=== PATIENT | female | born 1990 | race Caucasian/White ===

== ENCOUNTER 2018-08-06 15:00 | Inpatient (IN) | payer OTHER ==
[~2018-08-06] VITALS: Ht 175.3 cm; Wt 86.3 kg
[~2018-08-06 15:00] MED LIST: ACEDIPPM PO; APRI1 EACH PO; Bupropion Xl150 MG PO; CEFD300 PO; CIPR500 PO; DIPATR PO; FAMO20 PO; GYNE-LOTRIMIN-745 GM VAG; HYDACE5 PO; IBUP800 PO; LAMO100 PO; MEDR10 PO; MULVITMINE PO; Monodox100 MG PO; NAPR500EC PO; NYQUIL; Naprosyn500 MG PO; Norco 5-325 Ta1 EACH PO; ONDA4ODT MM; OXYACE5T PO; PENVK500 PO; POLY17UD PO; PROC10 PO; PROCODE120 PO; PROM25 PO; Percocet 5-3251 EACH PO; QUET100 PO; RXOXYACE PO; SIMPLY SLEEP PO; TAMS.4ER PO; UNISOM25 MG PO; Ventolin/Prove6.7 GM INH; Verotin-Gr Cap1 EACH PO; WELLBUTRIN; Zofran Odt4 MG PO; Zofran Odt4 MG SL
[2018-08-06 15:43] LABS: BASOPHILS ABSOLUTE AUTO 0.07 K/mm3 (0.00-0.23); BASOPHILS PERCENT AUTO 0 % (0-2); EOSINOPHILS PERCENT AUTO 0 % (0-6); Hematocrit 28.8 % (33.0-51.0); Hemoglobin 9.3 g/dL (11.5-16.0); IMMATURE GRAN ABSOLUTE AUTO 0.49 K/mm3 (0.00-0.10); IMMATURE GRAN PERCENT AUTO 1 % (0-1); LYMPHOCYTES ABSOLUTE AUTO 1.01 K/mm3 (0.84-5.20); LYMPHOCYTES PERCENT AUTO 3 % (21-46); MONOCYTES ABSOLUTE AUTO 2.19 K/mm3 (0.16-1.47); MONOCYTES PERCENT AUTO 6 % (4-13); Mean Corpuscular HGB Conc 32.3 g/dL (31.5-36.5); Mean Corpuscular Volume 90 fL (80-100); Mean Platelet Volume 10.5 fL (9.1-12.4); NEUTROPHILS ABSOLUTE AUTO 33.24 K/mm3 (1.96-9.15); NEUTROPHILS PERCENT AUTO 90 % (41-73); Platelet Count 312 K/mm3 (150-400); RDW Coefficient Variation 12.5 % (11.7-14.2); RDW Standard Deviation 41.5 fL (35.1-46.3); Red Blood Cell Count 3.21 M/mm3 (3.80-5.20)
--- NOTE | 2018-08-06 16:40 | NUR ---
JULIA Smalls RN IN OR NOTIFIED OF LABORING VTOL PT 8CM KIMBERLY BEYER
[2018-08-06 21:58] LABS: Alanine Aminotransfer (ALT/SGP 19 U/L (12-78); Albumin, Blood 2.3 g/dL (3.4-5.0); Albumin/Globulin Ratio 0.5 (0.8-1.8); Alk Phos 168 U/L (50-136); Anion Gap 13 mmol/L (6-16); Aspartate Aminotrans (AST/SGOT 14 U/L (12-37); Bilirubin, Total 0.7 mg/dL (0.1-1.0); Blood Urea Nitrogen 3 mg/dL (8-24); Bun/Creatinine Ratio 6.4 (12.0-20.0); CO2, Blood 20 mmol/L (21-32); Calcium, Blood 8.8 mg/dL (8.5-10.1); Chloride, Blood 103 mmol/L (98-108); Creatinine, Blood 0.47 mg/dL (0.40-1.00); Globulin, Blood 4.2 g/dL (2.2-4.0); Glomerular Filtration Rate >60 (60-); Glucose, Blood 104 mg/dL (70-99); Sodium, Blood 136 mmol/L (136-145); Total Protein, Blood 6.5 g/dL (6.4-8.2)
--- NOTE | 2018-08-07 00:40 | NUR ---
DUAL LUMEN CATH PLACED BY ULTRASOUND.
[2018-08-07 05:03] LABS: BASOPHILS ABSOLUTE AUTO 0.07 K/mm3 (0.00-0.23); BASOPHILS PERCENT AUTO 0 % (0-2); EOSINOPHILS ABSOLUTE AUTO 0.01 K/mm3 (0.00-0.68); EOSINOPHILS PERCENT AUTO 0 % (0-6); Hematocrit 25.2 % (33.0-51.0); Hemoglobin 7.8 g/dL (11.5-16.0); IMMATURE GRAN ABSOLUTE AUTO 0.45 K/mm3 (0.00-0.10); IMMATURE GRAN PERCENT AUTO 2 % (0-1); LYMPHOCYTES ABSOLUTE AUTO 2.16 K/mm3 (0.84-5.20); LYMPHOCYTES PERCENT AUTO 7 % (21-46); MONOCYTES PERCENT AUTO 6 % (4-13); Mean Corpuscular HGB 28.8 pg (26.0-34.0); Mean Platelet Volume 10.5 fL (9.1-12.4); NEUTROPHILS ABSOLUTE AUTO 25.19 K/mm3 (1.96-9.15); NEUTROPHILS PERCENT AUTO 85 % (41-73); Platelet Count 269 K/mm3 (150-400); RDW Coefficient Variation 12.9 % (11.7-14.2); RDW Standard Deviation 43.9 fL (35.1-46.3); Red Blood Cell Count 2.71 M/mm3 (3.80-5.20); White Blood Cell Count 29.78 K/mm3 (4.00-11.30)
[2018-08-07 05:15] LABS: Mean Corpuscular Volume 93 fL (80-100)
--- NOTE | 2018-08-07 11:22 | NUR ---
LOW B/P, PATIENT STATES SHE FEELS FINE STATES NO DIZZINESS, BLEEDING WNL, STATES SHE HAS HAD LOW B/P IN THE PAST
[2018-08-08 06:11] LABS: BASOPHILS PERCENT AUTO 1 % (0-2); EOSINOPHILS ABSOLUTE AUTO 0.24 K/mm3 (0.00-0.68); EOSINOPHILS PERCENT AUTO 1 % (0-6); Hematocrit 25.3 % (33.0-51.0); Hemoglobin 7.9 g/dL (11.5-16.0); IMMATURE GRAN ABSOLUTE AUTO 0.51 K/mm3 (0.00-0.10); IMMATURE GRAN PERCENT AUTO 3 % (0-1); LYMPHOCYTES ABSOLUTE AUTO 3.12 K/mm3 (0.84-5.20); LYMPHOCYTES PERCENT AUTO 17 % (21-46); MONOCYTES ABSOLUTE AUTO 1.14 K/mm3 (0.16-1.47); MONOCYTES PERCENT AUTO 6 % (4-13); Mean Corpuscular HGB 29.3 pg (26.0-34.0); Mean Corpuscular HGB Conc 31.2 g/dL (31.5-36.5); Mean Corpuscular Volume 94 fL (80-100); Mean Platelet Volume 10.3 fL (9.1-12.4); NEUTROPHILS ABSOLUTE AUTO 13.81 K/mm3 (1.96-9.15); NEUTROPHILS PERCENT AUTO 73 % (41-73); Platelet Count 271 K/mm3 (150-400); RDW Standard Deviation 44.5 fL (35.1-46.3); White Blood Cell Count 18.92 K/mm3 (4.00-11.30)
--- NOTE | 2018-08-08 09:47 | NUR ---
PT REFUSES HIV LAB DRAW. STATE SHE IS SURE THAT SHE DOES NOT HAVE HIV. JUAN FRANCISCO CORONADO AT BEDSIDE WHEN PT STATES THIS AND REFUSES FURTHER TESTING. AKILA IN LAB NOTIFIED, AKILA STATES HE WILL TRY TO RUN AND HIV TEST OFF OF THE BLOOD TUBES HE HAS IN THE LAB.
== END 2018-08-08 20:17 | disposition home or self-care (01) | DRG 807 ==
LOC: OBS 15:00 → BC 15:01 → OBS 15:09 → BC 15:10
PROVIDERS: Nurse Practitioner Obstetrics & Gynecology; Obstetrics & Gynecology; ADMIT Advanced Practice Midwife
PROC: 10E0XZZ Delivery of Products of Conception, External Approach (ICD-10-PCS; principal; 2018-08-06)
DX: O42.12 Full-term premature rupture of membranes, onset of labor more than 24 hours following rupture (principal); Z37.0 Single live birth; Z3A.35 35 weeks gestation of pregnancy; O34.211 Maternal care for low transverse scar from previous cesarean delivery; O90.81 Anemia of the puerperium
CPT/HCPCS: 36415; 36430; 51702; 80053; 83605; 85025; 86703; 86850; 86900; 86901; 86923; 90471; 90707; J0290; J1885; J2543; J2590; J3010; J7030; J7050; J7120; P9016; Q0177

== ENCOUNTER → 2019-02-06 | Outpatient (CLI) | payer OTHER ==
[~2019-02-06] MED LIST changes: +BUSP5 PO; +Lactated Ringe500 M1 IV; +ONDA4 PO; +Ondansetron4 MG/2 M2 IV; +SERT25 PO
[2019-02-06 12:28] LABS: Source, Urine Clean Catch
[2019-02-06 14:54] LABS: Bilirubin, Urine Neg (Neg); Blood, Urine Neg (Neg); Glucose Qualitative, Urine Neg (Neg); Ketones, Urine Neg (Neg); Leukocyte Esterase, Urine Neg (Neg); Nitrite, Urine Neg (Neg); Protein, Urine Neg (Neg); Specific Gravity, Urine 1.005 (1.003-1.022); Urobilinogen, Urine NORM (Normal)
[2019-02-06 15:07] LABS: Appearance, Urine Clear (Clear); Color, Urine Yellow (P-Yellow)
== END ==
LOC: LAB SHORT 12:26 → LAB UCHC 12:26
PROVIDERS: Registered Nurse Community Health
DX: Z33.1 Pregnant state, incidental (principal)
CPT/HCPCS: 36415; 81003; 87086

== ENCOUNTER 2019-02-13 11:57 | Emergency (ER) | payer OTHER ==
[~2019-02-13] VITALS: Ht 175.3 cm; Wt 72.6 kg
[~2019-02-13 11:57] MED LIST changes: -BUSP5 PO; -Lactated Ringe500 M1 IV; -ONDA4 PO; -Ondansetron4 MG/2 M2 IV; -SERT25 PO
[2019-02-13] MEDS ORDERED: ONDA4 PO (12:10)
[2019-02-13 13:04] LABS: BASOPHILS ABSOLUTE AUTO 0.02 K/mm3 (0.00-0.23); BASOPHILS PERCENT AUTO 0 % (0-2); EOSINOPHILS ABSOLUTE AUTO 0.08 K/mm3 (0.00-0.68); EOSINOPHILS PERCENT AUTO 1 % (0-6); Hematocrit 38.8 % (33.0-51.0); Hemoglobin 12.3 g/dL (11.5-16.0); IMMATURE GRAN ABSOLUTE AUTO 0.03 K/mm3 (0.00-0.10); IMMATURE GRAN PERCENT AUTO 0 % (0-1); LYMPHOCYTES PERCENT AUTO 24 % (21-46); MONOCYTES ABSOLUTE AUTO 0.58 K/mm3 (0.16-1.47); MONOCYTES PERCENT AUTO 8 % (4-13); Mean Corpuscular HGB 28.6 pg (26.0-34.0); Mean Corpuscular HGB Conc 31.7 g/dL (31.5-36.5); Mean Corpuscular Volume 90 fL (80-100); Mean Platelet Volume 10.3 fL (9.1-12.4); NEUTROPHILS ABSOLUTE AUTO 5.11 K/mm3 (1.96-9.15); NEUTROPHILS PERCENT AUTO 67 % (41-73); Platelet Count 248 K/mm3 (150-400); RDW Standard Deviation 39.4 fL (35.1-46.3); White Blood Cell Count 7.62 K/mm3 (4.00-11.30)
[2019-02-13 13:22] LABS: Alanine Aminotransfer (ALT/SGP 53 U/L (12-78); Albumin, Blood 3.8 g/dL (3.4-5.0); Albumin/Globulin Ratio 1.1 (0.8-1.8); Alk Phos 96 U/L (50-136); Anion Gap 5 mmol/L (6-16); Aspartate Aminotrans (AST/SGOT 16 U/L (12-37); Bilirubin, Total 0.4 mg/dL (0.1-1.0); Blood Urea Nitrogen 7 mg/dL (8-24); Bun/Creatinine Ratio 15.4 (12.0-20.0); CO2, Blood 26 mmol/L (21-32); Calcium, Blood 8.9 mg/dL (8.5-10.1); Chloride, Blood 106 mmol/L (98-108); Creatinine, Blood 0.46 mg/dL (0.40-1.00); Globulin, Blood 3.6 g/dL (2.2-4.0); Glomerular Filtration Rate >60 (60-); Glucose, Blood 75 mg/dL (70-99); Potassium, Blood 3.6 mmol/L (3.5-5.5); Sodium, Blood 137 mmol/L (136-145); Total Protein, Blood 7.4 g/dL (6.4-8.2)
[2019-02-13 13:23] LABS: Source, Urine Clean Catch
[2019-02-13 13:33] LABS: Bilirubin, Urine Neg (Neg); Blood, Urine Neg (Neg); Glucose Qualitative, Urine Neg (Neg); Ketones, Urine Neg (Neg); Leukocyte Esterase, Urine 1+ (Neg); Nitrite, Urine Neg (Neg); Protein, Urine Neg (Neg); Urobilinogen, Urine NORM (Normal)
[2019-02-13 13:47] LABS: Appearance, Urine Clear (Clear); Color, Urine Yellow (P-Yellow)
[2019-02-13 13:48] LABS: Red Blood Cells, Urine 0-2 /hpf (0-2); Squamous Epithelial Cells Mod /hpf (Few); White Blood Cells, Urine 0-2 /hpf (0-5)
[2019-02-13 13:49] LABS: Bacteria Few /hpf
== END 2019-02-13 14:17 | disposition home or self-care (01) ==
LOC: ER 11:57
PROVIDERS: Emergency Medicine
DX: O20.0 Threatened abortion (principal); Z3A.08 8 weeks gestation of pregnancy
CPT/HCPCS: 36415; 76801; 76817; 80053; 81001; 84702; 85025; 87086; 87147; 99284-25

== ENCOUNTER 2019-02-21 09:51 | Day surgery (SDC) | payer OTHER ==
[~2019-02-21 09:51] MED LIST changes: +ONDA4 PO
== END 2019-02-21 12:29 | disposition home or self-care (01) ==
LOC: ATC 09:51
DX: O21.0 Mild hyperemesis gravidarum (principal); O20.0 Threatened abortion; O34.219 Maternal care for unspecified type scar from previous cesarean delivery; Z3A.00 Weeks of gestation of pregnancy not specified; Z79.899 Other long term (current) drug therapy
CPT/HCPCS: 96361; 96365; 96375; J2405; J3411; J3475; J7042; J7120

== ENCOUNTER 2019-02-24 00:08 | Day surgery (SDC) | payer OTHER ==
[~2019-02-24 00:08] MED LIST changes: -BUSP5 PO; -Lactated Ringe500 M1 IV; -Ondansetron4 MG/2 M2 IV; -SERT25 PO
== END 2019-02-24 18:53 | disposition home or self-care (01) ==
LOC: ATC 00:08
DX: O20.0 Threatened abortion (principal); O34.219 Maternal care for unspecified type scar from previous cesarean delivery; Z3A.00 Weeks of gestation of pregnancy not specified; Z79.899 Other long term (current) drug therapy
CPT/HCPCS: 96361; 96365; 96375; J2405; J3411; J3475; J7042; J7120

== ENCOUNTER → 2019-02-24 | Outpatient (CLI) | payer OTHER ==
[~2019-02-24] MED LIST changes: +BUSP5 PO; +Lactated Ringe500 M1 IV; +Ondansetron4 MG/2 M2 IV; +SERT25 PO
[2019-02-27 00:06] LABS: CHLAMYDIA TRACHOMATIS, NAA Negative (Negative); NEISSERIA GONORRHOEAE, NAA Negative (Negative)
== END ==
LOC: LAB SHORT 17:52 → LAB 17:52
PROVIDERS: Registered Nurse Community Health
DX: Z34.92 Encounter for supervision of normal pregnancy, unspecified, second trimester (principal)
CPT/HCPCS: 87491; 87591

== ENCOUNTER 2019-02-27 02:24 | Day surgery (SDC) | payer OTHER ==
[2019-02-27] MEDS ORDERED: BUSP5 PO (16:45)
[2019-02-27] MEDS ORDERED: SERT25 PO (16:45)
== END 2019-02-27 18:53 | disposition home or self-care (01) ==
LOC: ATC 02:24
DX: O21.0 Mild hyperemesis gravidarum (principal); O99.511 Diseases of the respiratory system complicating pregnancy, first trimester; O99.281 Endocrine, nutritional and metabolic diseases complicating pregnancy, first trimester; O99.341 Other mental disorders complicating pregnancy, first trimester; E05.90 Thyrotoxicosis, unspecified without thyrotoxic crisis or storm; J45.909 Unspecified asthma, uncomplicated; F41.8 Other specified anxiety disorders; Z3A.11 11 weeks gestation of pregnancy; Z91.018 Allergy to other foods; Z79.899 Other long term (current) drug therapy; Z87.891 Personal history of nicotine dependence
CPT/HCPCS: 96361; 96365; 96375; J2405; J3411; J3475; J7042; J7120

== ENCOUNTER 2019-03-02 00:15 | Day surgery (SDC) | payer OTHER ==
[~2019-03-02 00:15] MED LIST changes: +BUSP5 PO; +SERT25 PO
--- NOTE | 2019-03-02 18:54 | NUR ---
PT GOT A LATE START TO HER INFUSION DUE TO IV ACCESS ISSUES. PT REQUESTED BANANA BAG BUT DECLINED MELISSA RICKS
--- NOTE | 2019-03-02 18:55 | NUR ---
PT STATED IV STUNG AND WOULD LIKE TO ATTEMPT POWER GLIDE ACCESS TONIGHT
--- NOTE | 2019-03-02 18:57 | NUR ---
EXTENDED DWELL ATTEMPT X2, UNABLE TO CANULATE VEIN.
== END 2019-03-02 18:53 | disposition home or self-care (01) ==
LOC: ATC 00:15
DX: O21.0 Mild hyperemesis gravidarum (principal); O99.281 Endocrine, nutritional and metabolic diseases complicating pregnancy, first trimester; O99.341 Other mental disorders complicating pregnancy, first trimester; O34.219 Maternal care for unspecified type scar from previous cesarean delivery; E05.90 Thyrotoxicosis, unspecified without thyrotoxic crisis or storm; F41.9 Anxiety disorder, unspecified; F32.9 Major depressive disorder, single episode, unspecified; Z3A.12 12 weeks gestation of pregnancy; Z87.51 Personal history of pre-term labor; Z91.018 Allergy to other foods; Z79.899 Other long term (current) drug therapy
CPT/HCPCS: 96365; 96375; J2405; J3411; J3475; J7042; J7120

== ENCOUNTER 2019-03-03 10:22 | Day surgery (SDC) | payer OTHER ==
--- NOTE | 2019-03-03 18:55 | NUR ---
ATTEMPTED POWER GLIDE 3 TIMES ON BOTH ARMS. PT VERY ANXIOUS. UNABLE TO CANNULATE VEIN.
== END 2019-03-03 18:52 | disposition home or self-care (01) ==
LOC: ATC 10:22
DX: O21.0 Mild hyperemesis gravidarum (principal); O99.281 Endocrine, nutritional and metabolic diseases complicating pregnancy, first trimester; O99.341 Other mental disorders complicating pregnancy, first trimester; O34.219 Maternal care for unspecified type scar from previous cesarean delivery; E05.90 Thyrotoxicosis, unspecified without thyrotoxic crisis or storm; F41.9 Anxiety disorder, unspecified; F32.9 Major depressive disorder, single episode, unspecified; Z3A.12 12 weeks gestation of pregnancy; Z87.51 Personal history of pre-term labor; Z91.018 Allergy to other foods; Z79.899 Other long term (current) drug therapy; Z87.891 Personal history of nicotine dependence
CPT/HCPCS: 96361; 96374; J2405; J7120

== ENCOUNTER 2019-03-05 00:10 | Day surgery (SDC) | payer OTHER ==
[2019-03-05] MEDS ORDERED: Lactated Ringe500 M1 IV (17:42)
[2019-03-05] MEDS ORDERED: Ondansetron4 MG/2 M2 IV (17:43)
== END 2019-03-05 23:04 | disposition home or self-care (01) ==
LOC: ATC 00:10
DX: O21.0 Mild hyperemesis gravidarum (principal); O99.281 Endocrine, nutritional and metabolic diseases complicating pregnancy, first trimester; O99.341 Other mental disorders complicating pregnancy, first trimester; O99.611 Diseases of the digestive system complicating pregnancy, first trimester; O99.511 Diseases of the respiratory system complicating pregnancy, first trimester; O34.219 Maternal care for unspecified type scar from previous cesarean delivery; E05.90 Thyrotoxicosis, unspecified without thyrotoxic crisis or storm; K21.9 Gastro-esophageal reflux disease without esophagitis; F41.9 Anxiety disorder, unspecified; F32.9 Major depressive disorder, single episode, unspecified; J45.909 Unspecified asthma, uncomplicated; Z3A.12 12 weeks gestation of pregnancy; Z87.51 Personal history of pre-term labor; Z79.899 Other long term (current) drug therapy; Z87.891 Personal history of nicotine dependence; Z91.018 Allergy to other foods
CPT/HCPCS: 96361; 96374; J2405; J3411; J3475; J7042; J7120

== ENCOUNTER 2019-03-13 00:53 | Day surgery (SDC) | payer OTHER ==
[~2019-03-13 00:53] MED LIST changes: +Lactated Ringe500 M1 IV; +Ondansetron4 MG/2 M2 IV
== END 2019-03-13 23:22 | disposition home or self-care (01) ==
LOC: ATC 00:53
DX: O21.0 Mild hyperemesis gravidarum (principal); O99.519 Diseases of the respiratory system complicating pregnancy, unspecified trimester; J45.909 Unspecified asthma, uncomplicated; Z3A.00 Weeks of gestation of pregnancy not specified; Z87.891 Personal history of nicotine dependence
CPT/HCPCS: J3411; J3475; J7042

== ENCOUNTER 2019-03-14 08:56 | Day surgery (SDC) | payer OTHER | END 2019-03-14 11:41 | disposition home or self-care (01) | LOC: ATC 08:56 | DX: O21.0 Mild hyperemesis gravidarum (principal); O99.519 Diseases of the respiratory system complicating pregnancy, unspecified trimester; I10 Essential (primary) hypertension; J45.909 Unspecified asthma, uncomplicated; Z87.891 Personal history of nicotine dependence; Z3A.00 Weeks of gestation of pregnancy not specified | CPT/HCPCS: 96361; 96365; 96375; J2405; J3411; J3475; J7042; J7120 ==

== ENCOUNTER 2019-03-21 01:39 | Day surgery (SDC) | payer OTHER ==
--- NOTE | 2019-03-21 10:53 | NUR ---
THIS RN ATTEMPTED 3X FOR IV INSERTION, ALL 3 WERE UNSUCCESSFUL. CALLED [facility] FOR IV.
--- NOTE | 2019-03-21 11:16 | NUR ---
PT REFUSED BANANA BAG TODAY.
== END 2019-03-21 22:38 | disposition home or self-care (01) ==
LOC: ATC 01:39
DX: O21.0 Mild hyperemesis gravidarum (principal); O99.519 Diseases of the respiratory system complicating pregnancy, unspecified trimester; J45.909 Unspecified asthma, uncomplicated; Z79.899 Other long term (current) drug therapy; Z3A.00 Weeks of gestation of pregnancy not specified; Z87.891 Personal history of nicotine dependence
CPT/HCPCS: 96361; 96374; J2405; J3411; J3475; J7042; J7120

== ENCOUNTER 2019-03-26 00:20 | Day surgery (SDC) | payer OTHER | END 2019-03-26 19:01 | disposition home or self-care (01) | LOC: ATC 00:20 | DX: O21.0 Mild hyperemesis gravidarum (principal); O99.519 Diseases of the respiratory system complicating pregnancy, unspecified trimester; J45.909 Unspecified asthma, uncomplicated; Z87.891 Personal history of nicotine dependence | CPT/HCPCS: 96361; 96365; 96367; J2405; J3411; J3475; J7042; J7120 ==

== ENCOUNTER 2019-03-29 00:37 | Day surgery (SDC) | payer OTHER ==
--- NOTE | 2019-03-29 09:06 | NUR ---
PT ACTIVELY PUKING UPON ARRIVAL TO THE ROOM THIS AM. ZOFRAN GIVEN PER MD ORDER.
== END 2019-03-29 11:00 | disposition home or self-care (01) ==
LOC: ATC 00:37
DX: O21.0 Mild hyperemesis gravidarum (principal); O99.519 Diseases of the respiratory system complicating pregnancy, unspecified trimester; J45.909 Unspecified asthma, uncomplicated; Z3A.00 Weeks of gestation of pregnancy not specified
CPT/HCPCS: 96360; 96361; 96375; J2405; J3411; J3475; J7042; J7120

== ENCOUNTER 2019-04-02 00:05 | Day surgery (SDC) | payer OTHER | END 2019-04-02 17:48 | disposition home or self-care (01) | LOC: ATC 00:05 | DX: O21.0 Mild hyperemesis gravidarum (principal); O99.519 Diseases of the respiratory system complicating pregnancy, unspecified trimester; J45.909 Unspecified asthma, uncomplicated; Z3A.00 Weeks of gestation of pregnancy not specified; Z87.891 Personal history of nicotine dependence | CPT/HCPCS: 96361; 96365; 96375; J2405; J3411; J3475; J7042; J7120 ==

== ENCOUNTER 2019-04-08 00:13 | Day surgery (SDC) | payer OTHER ==
[2019-04-08] MEDS ORDERED: DULO60 PO (16:50)
[2019-04-08] MEDS ORDERED: Amoxicillin500 MG PO (16:51)
== END 2019-04-08 22:54 | disposition home or self-care (01) ==
LOC: ATC 00:13
DX: O21.0 Mild hyperemesis gravidarum (principal); O99.519 Diseases of the respiratory system complicating pregnancy, unspecified trimester; J45.909 Unspecified asthma, uncomplicated; Z3A.00 Weeks of gestation of pregnancy not specified; Z87.891 Personal history of nicotine dependence
CPT/HCPCS: 96361; 96374; J2405; J3411; J3475; J7042; J7120

== ENCOUNTER 2019-04-11 02:15 | Day surgery (SDC) | payer OTHER ==
[~2019-04-11 02:15] MED LIST changes: +Amoxicillin500 MG PO; +DULO60 PO
== END 2019-04-11 22:42 | disposition home or self-care (01) ==
LOC: ATC 02:15
DX: O20.0 Threatened abortion (principal); Z3A.00 Weeks of gestation of pregnancy not specified; O20.8 Other hemorrhage in early pregnancy
CPT/HCPCS: J2405; J3411; J3475; J7042; J7120

== ENCOUNTER 2019-04-14 00:21 | Day surgery (SDC) | payer OTHER | END 2019-04-14 12:00 | disposition home or self-care (01) | LOC: ATC 00:21 | DX: O21.0 Mild hyperemesis gravidarum (principal); O99.519 Diseases of the respiratory system complicating pregnancy, unspecified trimester; J45.909 Unspecified asthma, uncomplicated; Z87.891 Personal history of nicotine dependence; Z3A.00 Weeks of gestation of pregnancy not specified | CPT/HCPCS: J3411; J3475; J7042 ==

== ENCOUNTER 2019-04-15 03:10 | Day surgery (SDC) | payer OTHER | END 2019-04-15 10:04 | disposition home or self-care (01) | LOC: ATC 03:10 | DX: O21.0 Mild hyperemesis gravidarum (principal); O99.519 Diseases of the respiratory system complicating pregnancy, unspecified trimester; Z3A.00 Weeks of gestation of pregnancy not specified; Z87.891 Personal history of nicotine dependence ==

== ENCOUNTER → 2019-07-02 | Outpatient (CLI) | payer OTHER ==
[2019-07-02 19:47] LABS: Hematocrit 32.5 % (33.0-51.0); Hemoglobin 10.6 g/dL (11.5-16.0)
== END ==
LOC: LAB 18:36 → LAB SHORT 18:36
PROVIDERS: Registered Nurse Community Health
DX: Z34.92 Encounter for supervision of normal pregnancy, unspecified, second trimester (principal)
CPT/HCPCS: 83036; 85014; 85018

== ENCOUNTER → 2021-01-18 | Outpatient (CLI) | payer OTHER | END | disposition home or self-care (01) | LOC: LAB 07:34 → LAB SHORT 07:34 | DX: N92.0 Excessive and frequent menstruation with regular cycle (principal) | CPT/HCPCS: 88305 ==

== ENCOUNTER → 2021-07-09 | Outpatient (CLI) | payer OTHER ==
[~2021-07-09] MED LIST changes: +BUPROPION XL150 M1 PO; +CLONAZEPAM0.5 MG PO; +Cyproheptadine H4 MG PO; +Desyrel150 MG PO; +GABA400 PO; +Lithium Carbon450 MG PO; +OXYC5 PO
== END | disposition home or self-care (01) ==
LOC: LAB SHORT 10:30
DX: N39.0 Urinary tract infection, site not specified (principal)
CPT/HCPCS: 87077; 87086; 87186

== ENCOUNTER → 2021-07-29 | Outpatient (CLI) | payer OTHER | END | disposition home or self-care (01) | LOC: LAB SHORT 18:32 → LAB 18:32 | DX: N39.0 Urinary tract infection, site not specified (principal); R30.9 Painful micturition, unspecified | CPT/HCPCS: 87077; 87086; 87186 ==

== ENCOUNTER → 2023-07-24 | Outpatient (CLI) | payer OTHER | LOC: LAB 08:46 → LAB SHORT 08:46 | DX: N39.0 Urinary tract infection, site not specified (principal) | CPT/HCPCS: 87086 ==

== ENCOUNTER → 2024-02-07 | Outpatient (CLI) | payer BC, OTHER ==
[2024-02-09 06:15] LABS: HCV QNT BY NAAT (IU/ML) Not Detected; HCV QNT BY NAAT (LOG IU/ML) Not Detected; HCV QNT BY NAAT INTERP Not Detected (Not Detected)
[2024-02-09 07:28] LABS: HEPATITIS B SURFACE ANTIBODY <3.10 IU/L
[2024-02-09 09:11] LABS: HEPATITIS B SURFACE ANTIGEN Negative (Negative)
[2024-02-09 10:34] LABS: HIV 1,2 COMBO ANTIGEN/ANTIBODY Negative (Negative)
== END ==
LOC: LAB 15:30 → LAB SHORT 15:30
PROVIDERS: Chiropractor
DX: Z20.9 Contact with and (suspected) exposure to unspecified communicable disease (principal)
CPT/HCPCS: 84460; 87340; 87389; 87522

== ENCOUNTER 2025-01-07 08:06 | Emergency (ER) | payer OTHER ==
[~2025-01-07] VITALS: Ht 167.6 cm; Wt 68.0 kg
[2025-01-07] MEDS ORDERED: NS 1,000 ML IV SCH (08:50)
[2025-01-07] MEDS ORDERED: Ondansetron HCl 2 MG / ML 2ML Vial IV ONE (08:50)
[2025-01-07 09:11] LABS: BASOPHILS ABSOLUTE AUTO 0.10 K/mm3 (0.00-0.23); BASOPHILS PERCENT AUTO 1 % (0-2); EOSINOPHILS ABSOLUTE AUTO 0.08 K/mm3 (0.00-0.68); EOSINOPHILS PERCENT AUTO 1 % (0-6); Hematocrit 45.1 % (33.0-51.0); Hemoglobin 15.1 g/dL (11.5-16.0); IMMATURE GRAN ABSOLUTE AUTO 0.06 K/mm3 (0.00-0.10); IMMATURE GRAN PERCENT AUTO 0 % (0-1); LYMPHOCYTES ABSOLUTE AUTO 2.40 K/mm3 (0.84-5.20); LYMPHOCYTES PERCENT AUTO 14 % (21-46); MONOCYTES ABSOLUTE AUTO 0.84 K/mm3 (0.16-1.47); MONOCYTES PERCENT AUTO 5 % (4-13); Mean Corpuscular HGB Conc 33.5 g/dL (31.5-36.5); Mean Corpuscular Volume 88 fL (80-100); NEUTROPHILS ABSOLUTE AUTO 14.04 K/mm3 (1.96-9.15); NEUTROPHILS PERCENT AUTO 80 % (41-73); NRBC ABSOLUTE 0.00 K/mm3 (0.00-0.02); NRBC Auto 0.0 /100 WBC (0.0-0.2); Platelet Count 297 K/mm3 (150-400); RDW Coefficient Variation 12.2 % (11.7-14.2); RDW Standard Deviation 39.7 fL (35.1-46.3)
[2025-01-07 09:31] LABS: Alanine Aminotransfer (ALT/SGP 28.0 U/L (12-78); Albumin, Blood 4.7 g/dL (3.4-5.0); Albumin/Globulin Ratio 1.2 (0.8-1.8); Anion Gap 17.0 mmol/L (3-11); Aspartate Aminotrans (AST/SGOT 17.0 U/L (12-37); Bilirubin, Total 0.9 mg/dL (0.1-1.0); Blood Urea Nitrogen 23.0 mg/dL (8-24); CO2, Blood 19.0 mmol/L (21-32); Calcium, Blood 11.1 mg/dL (8.5-10.1); Chloride, Blood 102.0 mmol/L (98-108); Creatinine, Blood 0.57 mg/dL (0.40-1.00); Globulin, Blood 4.0 g/dL (2.2-4.0); Glucose, Blood 84.0 mg/dL (70-99); Potassium, Blood 3.8 mmol/L (3.5-5.5); Sodium, Blood 134.0 mmol/L (136-145); Total Protein, Blood 8.7 g/dL (6.4-8.2)
[2025-01-07 10:14] LABS: Influenza A, PCR NEGATIVE (NEGATIVE); Influenza B, PCR NEGATIVE (NEGATIVE); Resp Syncytial Virus, PCR NEGATIVE (NEGATIVE); SARS-Cov-2 (COVID-19) PCR, MMC NEGATIVE (NEGATIVE)
[2025-01-07] MEDS ORDERED: DiphenhydrAMINE HCl 50 MG/ML 1ML Vial IV ONE (10:35)
[2025-01-07] MEDS ORDERED: Metoclopramide HCl 5MG / ML 2ML Vial IV ONE (10:35)
[2025-01-07] MEDS ORDERED: Lidocaine 2% Viscous Soln 15 ML UDC PO ONE (10:45)
[2025-01-07] MEDS ORDERED: RX Prepack 2 Tabs Ondansetron ODT 4MG UD ONE (11:40)
[2025-01-07 11:59] VITALS: BP 103/55
[2025-01-08] MEDS ORDERED: ONDA4ODT MM (09:45)
== END 2025-01-07 11:59 | disposition home or self-care (01) ==
LOC: ER 08:06
PROVIDERS: Physician Assistant
DX: R11.2 Nausea with vomiting, unspecified (principal); Z59.89 Other problems related to housing and economic circumstances
CPT/HCPCS: 80053; 84703; 85025; 87637; 93005; 93010; 96361; 96374; 96375; 99284-25; A9270; J1200; J2405; J2765; J7030